=== PATIENT | female | born 1930 | race Caucasian/White ===

== ENCOUNTER 2017-11-25 22:10 | Observation (INO) ==
[2017-11-25] MEDS ORDERED: Ondansetron ODT 4 MG TAB.RAPDIS SL ONE (22:48)
[2017-11-25] MEDS ORDERED: 0.9 % Sodium Chloride 1,000 ML IVC ONE (23:05)
[2017-11-25] MEDS ORDERED: Metoclopramide 10 MG/2 ML VIAL IVP ONE (23:06)
--- NOTE | 2017-11-25 23:07 | Emergency Department Note ---
Disposition Clinical Impression: Gastroenteritis, Dehydration, CARMEN (acute kidney injury) Disposition: Admitted As Inpatient Condition: Fair Referrals: Brenda Willis MD [Primary Care Provider] - Forms: ED Satisfaction Letter Time of Disposition: 02:00 (Claudio) Nausea/Vomiting/Diarrhea HPI - General Chief complaint: ED Nausea/Vomiting/Diarrhea Stated complaint: back pain , vomiting and diarrhea Time Seen by Provider: 11/25/17 22:47 Source: patient, family Limitations: physical limitation, age Nursing Notes Reviewed: Yes Vital Signs Reviewed: Yes - History of Present Illness Pt Subjective Complaint: nausea, vomiting, diarrhea Onset (ago): day(s) (2) Description of emesis: watery Description of Diarrhea: water Associated Abdominal Pain: Yes If pain, Location of pain: LLQ, RLQ Radiation: other (back) Severity: moderate Quality: cramping Consistency: constant Improves with: nothing Worsens with: bowel movement, vomiting Associated symptoms: Reports: loss of appetite, weakness. Denies: myalgias, chest pain, cough, diaphoresis, fever/chills, headaches, malaise, rash, dysuria , shortness of breath, syncope - Related Data Home Medications Medication Instructions Recorded Confirmed Lisinopril [Zestril] 5 mg PO DAILY 04/07/15 11/25/17 Pantoprazole Sodium 40 mg PO DAILY 04/07/15 11/25/17 Atorvastatin Calcium [Lipitor] 20 mg PO QAM 08/04/16 11/25/17 Calcium Carbonate/Vitamin D3 1 each PO QAM 08/04/16 11/25/17 [Calcium 1,000 + D3 Caplet] Cranberry 400 mg PO QAM 08/04/16 11/25/17 Estrogens, Conjugated [Premarin 1 appl VG 3XW 08/04/16 11/25/17 Cream] L. Acidophilus/Bifid. Animalis 1 each PO QAM 08/04/16 11/25/17 [One-A-Day Trubiotics Capsule] Metoprolol [Lopressor] 25 mg PO QAM 08/04/16 08/04/16 Previous Rx's Medication Instructions Recorded Acetaminophen [Tylenol] 650 mg PO Q6HR PRN #0 tablet 05/16/16 Aspirin 81 mg PO DAILY tab.chew 05/16/16 Docusate [Colace] 100 mg PO BID PRN #0 capsule 05/16/16 Allergies Allergy/AdvReac Type Severity Reaction Status Date / Time codeine Allergy Swelling Verified 11/25/17 22:11 of Lip/Tongue/Throat fish derived Allergy Swelling Verified 11/25/17 22:11 of Lip/Tongue/Throat tramadol AdvReac Confusion Verified 11/25/17 22:11 All systems ED: reviewed and negative except as stated. Review of Systems: As Per HPI Past Medical History - Past Medical History Medical history: Reports: arthritis, coronary artery disease, GERD, hyperlipidemia, hypertension, osteoporosis, valvular heart disease, other Surgical history: Reports: knee replacement Psychiatric history: Reports: depression [employer] history: Reports: no [employer] history - Social History Smoking Status: Never smoker Smokeless Tobacco Status: No Alcohol use: Reports: none Drug use: Reports: none Physical Exam - General Limitations: physical limitation, age General appearance: alert - Head Head exam: atraumatic - Eye Eye exam: Present: normal appearance, PERRL, EOMI. Absent: scleral icterus, conjunctival injection - ENT ENT exam: normal exam, normal oropharynx, mucous membranes moist - Neck Neck exam: Present: normal inspection, full ROM, trachea midline - Respiratory Respiratory exam: Present: normal lung sounds bilaterally - Cardiovascular Cardiovascular exam: Present: regular rate, normal rhythm, normal heart sounds - Abdominal Exam Abdominal exam: Present: soft, tenderness, normal bowel sounds. Absent: distention, guarding, rebound, rigidity, mass, bruit, pulsatile mass Abdominal tenderness: Present: RLQ, LLQ, mild - Extremities Exam Extremities exam: Present: normal inspection, full ROM. Absent: tenderness, pedal edema - Back Exam Back exam: Present: tenderness, CVA tenderness (R), CVA tenderness (L). Absent : muscle spasm, paraspinal tenderness, vertebral tenderness - Neurological Exam Neurological exam: Present: alert, oriented X3, CN II-XII intact - Psychiatric Psychiatric exam: Present: normal affect, normal mood - Skin Skin exam: Present: warm, dry, intact, normal color Course Vital Signs Temperature 98.2 F 11/25/17 22:16 Pulse Rate 65 11/25/17 22:16 Respiratory Rate 16 11/25/17 22:16 Blood Pressure 127/68 11/25/17 22:16 O2 Sat by Pulse Oximetry 95 11/25/17 22:16 Temperature 98.2 F 11/25/17 22:16 Pulse Rate 63 11/26/17 01:04 Respiratory Rate 16 11/26/17 01:04 Blood Pressure 112/67 11/26/17 01:04 O2 Sat by Pulse Oximetry 99 11/26/17 01:04 Oxygen Delivery Oxygen Delivery Room Air Nausea/Vomiting/Diarrhea - Differential Diagnosis Likely: traveler's diarrhea, food poisoning, gastroenteritis, clostridium difficile infection, drug-induced nausea and vomitting, dehydration - Medical Records Medical records reviewed: Yes I reviewed the patient's medical records. - Lab Data Lab results reviewed: Yes I reviewed the patient's lab results. Result diagrams: 11/26/17 00:00 11/26/17 00:00 Lab Results 11/26/17 11/26/17 11/26/17 Range/Units 00:00 00:00 00:51 WBC 10.6 (4.3-11.1) K/mcL RBC 3.90 (3.82-4.97) M/mcL Hgb 12.1 (11.5-15.4) g/dL Hct 37.0 (35.3-44.9) % MCV 94.9 (83.0-100.0) fL MCH 31.0 (28.0-33.3) pg MCHC 32.7 (31.6-35.5) g/dL RDW 13.1 (11.5-14.5) % Plt Count 175 (140-400) K/mcL MPV 10.6 (9.4-12.4) fL Immature Gran % 0.3 (0-4) % Seg Neutrophils % 79.4 % Lymphocytes % 12.4 % Monocytes % 6.3 % Eosinophils % 1.0 % Basophils % 0.6 % Neutrophils # 8.4 (1.6-8.9) K/mcL Lymphocytes # 1.3 (0.6-4.6) K/mcL Monocytes # 0.7 (0.0-1.3) K/mcL Eosinophils # 0.1 (0.0-0.6) K/mcL Basophils # 0.1 (0.0-0.2) K/mcL Sodium 138 (136-145) mEq/L Potassium 4.5 (3.5-5.1) mEq/L Chloride 109 H (98-107) mEq/L Carbon Dioxide 19 L (23-29) mEq/L BUN 32 H (8-23) mg/dL Creatinine 1.63 H (0.60-1.20) mg/dL Est GFR ( Amer) 36 L (> 60) Est GFR (Non-Af Amer) 30 L (> 60) BUN/Creatinine Ratio 20 (6-26) Glucose 131 H (70-105) mg/dL Calculated Osmolality 295 (280-300) Calcium 8.5 L (8.6-10.3) mg/dL Total Bilirubin 0.6 (0.3-1.0) mg/dL AST 17 (13-39) Units/L ALT 11 (7-52) Units/L Alkaline Phosphatase 71 (34-104) Units/L Serum Total Protein 6.1 L (6.4-8.9) g/dL Albumin 3.9 (3.5-5.7) g/dL Globulin 2.2 L (2.4-3.5) g/dL Albumin/Globulin Ratio 1.8 (1.1-2.2) Lipase 45 (11-82) Units/L Urine Color Yellow (Yellow) Urine Clarity Slightly Cloudy A (Clear) Urine pH 5.5 (5.0-8.0) pH Units Ur Specific [place] 1.025 (1.010-1.025) Urine Protein Negative (Neg-Trace) mg/dL Urine Glucose (UA) Normal (Normal) mg/dL Urine Ketones Negative (Negative) mg/dL Urine Blood Negative (Negative) Urine Nitrite Negative (Negative) Urine Bilirubin Negative (Negative) Urine Urobilinogen Normal (Normal) mg/dL Ur Leukocyte Esterase Small H (Negative) Urine Microscopic RBC 0-3 (0-3) per hpf Urine Microscopic WBC 30-50 H (0-3) per hpf Ur Squamous Epith Cells Many H (None-Few) per lpf Urine Bacteria Moderate H (None-Few) per hpf Urine Mucus Moderate H (Few) Ur Culture Indicated? NO. A (NO)
[2017-11-25] MEDS ORDERED: Acetaminophen 325 MG TABLET PO ONE (23:58)
[2017-11-26 00:05] LABS: Basophils # 0.1 K/mcL (0.0-0.2); Basophils % 0.6 %; Eosinophils # 0.1 K/mcL (0.0-0.6); Hemoglobin 12.1 g/dL (11.5-15.4); Immature Granulocytes % 0.3 % (0-4); Lymphocytes # 1.3 K/mcL (0.6-4.6); Lymphocytes % 12.4 %; Mean Corpuscular HGB Conc 32.7 g/dL (31.6-35.5); Mean Corpuscular Volume 94.9 fL (83.0-100.0); Mean Platelet Volume 10.6 fL (9.4-12.4); Monocytes # 0.7 K/mcL (0.0-1.3); Monocytes % 6.3 %; Neutrophils # 8.4 K/mcL (1.6-8.9); Platelet Count 175 K/mcL (140-400); Red Cell Distribution Width 13.1 % (11.5-14.5); Segmented Neutrophils % 79.4 %
[2017-11-26 01:19] LABS: Calcium 8.5 mg/dL (8.6-10.3); Potassium 4.5 mEq/L (3.5-5.1)
[2017-11-26 01:29] LABS: Albumin 3.9 g/dL (3.5-5.7); Albumin/Globulin Ratio 1.8 (1.1-2.2); Bilirubin,Total 0.6 mg/dL (0.3-1.0); Globulin 2.2 g/dL (2.4-3.5); Total Protein 6.1 g/dL (6.4-8.9)
[2017-11-26 01:35] LABS: Bilirubin,Urine Negative (Negative); Blood,Urine Negative (Negative); Clarity,Urine Slightly Cloudy (Clear); Color,Urine Yellow (Yellow); Glucose,Urine (UA) Normal (Normal); Ketones,Urine Negative (Negative); Leukocyte Esterase,Urine Small (Negative); Nitrite,Urine Negative (Negative); PH,Urine 5.5 pH Units (5.0-8.0); Protein,Urine Negative (Neg-Trace); Specific Gravity,Urine 1.025 (1.010-1.025); Urobilinogen,Urine Normal (Normal)
[2017-11-26 01:50] LABS: Bacteria,Urine Moderate per hpf (None-Few); Squamous Epithelial Cell,Urine Many per lpf (None-Few)
[2017-11-26 01:52] LABS: RBC,Urine 0-3 per hpf (0-3); WBC,Urine 30-50 per hpf (0-3)
[2017-11-26 01:53] LABS: Mucus,Urine Moderate (Few)
[2017-11-26] MEDS ORDERED: Metoclopramide 10 MG/2 ML VIAL IVP STA (02:56)
[2017-11-26] MEDS ORDERED: 0.9 % Sodium Chloride 1,000 ML IVC SCH (07:47)
[2017-11-26] MEDS ORDERED: Acetaminophen 325 MG TABLET PO PRN ×2 (07:47)
[2017-11-26] MEDS ORDERED: Naloxone 0.4 MG/ML INJ IVP PRN (07:47)
[2017-11-26] MEDS ORDERED: Metoclopramide 10 MG/2 ML VIAL IVP PRN (08:00)
[2017-11-26] MEDS ORDERED: Aspirin 81 MG TAB.CHEW PO SCH (09:00)
[2017-11-26] MEDS ORDERED: Estrogens, Conjugated CREAM 30 GM TUBE VG SCH (09:00)
[2017-11-26] MEDS ORDERED: Cholecalciferol (D-3) 1,000 UNIT TABLET PO SCH (10:45)
[2017-11-26 12:47] VITALS: BP 134/68
--- NOTE | 2017-11-26 15:49 | Internal Med History&Physical ---
Date of Encounter: 11/26/17 Time of Encounter: 15:15 Assessment and Plan (1) Gastroenteritis Current visit: Yes Status: Acute Clinically improved. She wishes to be discharged home. (2) HTN (hypertension) Current visit: No Status: Chronic Continue Lopressor and lisinopril. Qualifiers: Hypertension type: essential hypertension Qualified Code(s): I10 - Essential (primary) hypertension (3) CARMEN (acute kidney injury) Current visit: No Status: Acute Creatinine has risen from 1.32 on 10/10/2017 to 1.63 in ER. Suspect due to decreased oral intake. Her PCP and /or administrative assistant receptionist can monitor this. (4) History of aortic valve replacement with bioprosthetic valve Current visit: No Status: Chronic Internal Medicine - H&P: HPI Chief complaint: Vomiting Admitted From: Emergency Dept Plans for Post Hospital Care: Home History of present illness: Ms. Valle is a 87 year old female who came to emergency room stating she had onset of vomiting 11/24/2017 approximately 0500. She had several episodes along with diarrhea. After approximately 1 hour symptoms resolved and remained resolved until the following evening when they recurred. She also developed discomfort in her right low back area so decided to come to emergency room. She was evaluated and found to have acute on chronic renal insufficiency with probable dehydration and gastritis. She was admitted to [facility] floor for ongoing care needs. She states she feels improved present time. She has had no vomiting for proximately 12 hours and has no residual nausea. She has ingested liquids today without difficulty. She wishes to be discharged home. Her GI history is pertinent for GERD. She denies disorders of her liver gallbladder or exocrine pancreas. Past Med Surg Social Fam HX - Past Medical History Medical history: arthritis, coronary artery disease, GERD, hyperlipidemia, hypertension, osteoporosis, valvular heart disease, other Additional medical history: FREQUENT UTI'S Psychiatric history: depression - Past Surgical History Surgical History: knee replacement Additional surgical history: 2 broked arms. HEART VALVE REPLACED - Social History Smoking Status: Never smoker Smokeless Tobacco Status: No Alcohol use: none Drug use: none Internal Medicine - H&P: Meds Lisinopril [Zestril] 5 mg PO DAILY 04/07/15 [History] Pantoprazole Sodium 40 mg PO DAILY 04/07/15 [History] Acetaminophen [Tylenol] 650 mg PO Q6HR PRN #0 tablet 05/16/16 [Rx] Aspirin 81 mg PO DAILY tab.chew 05/16/16 [Rx] Docusate [Colace] 100 mg PO BID PRN #0 capsule 05/16/16 [Rx] Atorvastatin Calcium [Lipitor] 20 mg PO QAM 08/04/16 [History] Calcium Carbonate/Vitamin D3 [Calcium 1,000 + D3 Caplet] 1 each PO QAM 08/04/16 [History] Cranberry 400 mg PO QAM 08/04/16 [History] Estrogens, Conjugated [Premarin Cream] 1 appl VG 3XW 08/04/16 [History] L. Acidophilus/Bifid. Animalis [One-A-Day Trubiotics Capsule] 1 each PO QAM [History] Metoprolol [Lopressor] 25 mg PO QAM 08/04/16 [History] 3 Allergy/AdvReac Type Severity Reaction Status Date / Time codeine Allergy Swelling Verified 11/25/17 22:11 of Lip/Tongue/Throat fish derived Allergy Swelling Verified 11/25/17 22:11 of Lip/Tongue/Throat tramadol AdvReac Confusion Verified 11/25/17 22:11 All Systems PM: A 10-system review of systems was performed and is negative for pertinent findings except as documented above in the HPI. Review of systems: Gen.: She states her weight has been stable the past few months Cardiovascular: She has history of hypertension but denies DE heart failure angina DVT or pulmonary embolus. She had aortic valve replacement 2004. Respiratory: She is a lifelong nonsmoker and denies chronic lung disease GI: As per history of present illness : She has chronic kidney disease stage III and follows with a [place] administrative assistant receptionist. She denies other kidney or bladder disorders Neurologic: She denies large distribution strokes or seizures. Endocrine: She has hyperlipidemia. She has been told she is prediabetic. She denies thyroid disease. Hematology/oncology: She denies blood disorders cancers or anemia Psychiatric: She denies anxiety depression or other mental health issues [place] skeletal: She has DJD. She has had left knee arthroscopic surgery and right hand surgery. She denies gout or other bone joint or muscle disorders. - Constitutional Vitals: Temp Pulse Resp BP Pulse Ox 98.6 F 76 16 134/68 96 11/26/17 10:27 11/26/17 10:27 11/26/17 10:27 11/26/17 10:27 11/26/17 10:27 Exam: Gen.: She is a well developed well-nourished female resting comfortably in bed who appears in no acute distress at present time HEENT: Head is atraumatic and normocephalic. Eyes: EOMI. There is no scleral icterus. Mouth: Mucosa is moist. Neck: Supple and nontender. There is no thyromegaly or adenopathy noted. Heart: Regular without murmurs gallops or ectopics Lungs: No wheezes or crackles are heard. Abdomen: Soft and nontender. No masses or guarding are noted. Extremities: There is no cyanosis edema or clubbing noted. Dorsalis pedis and posttibial pulses are trace to 1+ palpable bilaterally. Neurologic: Mental status: She is talkative and a good historian. Cranial nerves: Smile is symmetric. Forehead wrinkles bilaterally. Tongue protrudes midline. EOMI. Motor: There is no pronator drift. Cerebellar: Finger to nose is intact bilaterally. Skin: Warm and dry Internal Med - H&P Results - Labs CBC & Chem 7: 11/26/17 00:00 11/26/17 00:00
--- NOTE | 2017-11-26 16:02 | Discharge Summary ---
Date of Encounter: 11/26/17 Time of Encounter: 15:15 - Discharge Diagnosis (1) Gastroenteritis Priority: Primary Status: Acute (2) HTN (hypertension) Priority: Secondary Status: Chronic Qualifiers: Hypertension type: essential hypertension Qualified Code(s): I10 - Essential (primary) hypertension (3) CARMEN (acute kidney injury) Priority: Secondary Status: Acute (4) History of aortic valve replacement with bioprosthetic valve Priority: Secondary Status: Chronic Hospital course: Ms. Valle is a 87 year old female who came to emergency room stating she had onset of vomiting 11/24/2017 approximately 0500. She had several episodes along with diarrhea. After approximately 1 hour symptoms resolved and remained resolved until the following evening when they recurred. She also developed discomfort in her right low back area so decided to come to emergency room. She was evaluated and found to have acute on chronic renal insufficiency with probable dehydration and gastritis. She was admitted to [facility] floor for ongoing care needs. Initial orders were written by the emergency room physician. I saw her the afternoon of November 26 and performed a history physical and discharge. When I saw her she felt clinically improved to near baseline. She had no vomiting for approximately 12 hours. She felt stable for discharge home which I felt was [place]. She will advance diet as tolerated. I reviewed lab work from emergency room showing UA indicating possible UTI. I explained to her many epithelial cells were present and told her this might be a contaminated specimen. Because of the slight left shift on admission CBC I will treat her with 3 days of Septra DS. Her PCP can monitor this further. She will be discharged home and follow with her PCP Dr. Willis within 1 week. - Time Spent with Patient Total time spent providing and/or coordinating discharge services: - Discharge Medications Prescriptions: Sulfamethoxazole/Trimeth DS [Bactrim DS] 1 each PO BID #6 tablet Home Medications: Lisinopril [Zestril] 5 mg PO DAILY 04/07/15 [History] Pantoprazole Sodium 40 mg PO DAILY 04/07/15 [History] Acetaminophen [Tylenol] 650 mg PO Q6HR PRN #0 tablet 05/16/16 [Rx] Aspirin 81 mg PO DAILY tab.chew 05/16/16 [Rx] Docusate [Colace] 100 mg PO BID PRN #0 capsule 05/16/16 [Rx] Atorvastatin Calcium [Lipitor] 20 mg PO QAM 08/04/16 [History] Calcium Carbonate/Vitamin D3 [Calcium 1,000 + D3 Caplet] 1 each PO QAM 08/04/16 [History] Cranberry 400 mg PO QAM 08/04/16 [History] Estrogens, Conjugated [Premarin Cream] 1 appl VG 3XW 08/04/16 [History] L. Acidophilus/Bifid. Animalis [One-A-Day Trubiotics Capsule] 1 each PO QAM [History] Metoprolol [Lopressor] 25 mg PO QAM 08/04/16 [History] Sulfamethoxazole/Trimeth DS [Bactrim DS] 1 each PO BID #6 tablet 11/26/17 [Rx] Allergies/Adverse Reactions: 3 Allergy/AdvReac Type Severity Reaction Status Date / Time codeine Allergy Swelling Verified 11/25/17 22:11 of Lip/Tongue/Throat fish derived Allergy Swelling Verified 11/25/17 22:11 of Lip/Tongue/Throat tramadol AdvReac Confusion Verified 11/25/17 22:11 Date of admission: 11/26/17 02:58 Primary care physician: Brenda Willis, - Constitutional Vitals: Temp Pulse Resp BP Pulse Ox 98.6 F 76 16 134/68 96 11/26/17 10:27 11/26/17 10:27 11/26/17 10:27 11/26/17 10:27 11/26/17 10:27 - Patient Status Disposition: Home, Self-Care Condition: Fair Overall status at discharge: patient is progressing back to baseline - Discharge Instructions Follow Up With: Brenda Willis MD [Primary Care Provider] - 1 week - Diet and Activity Activity: resume usual activities as tolerated
== END 2017-11-26 17:10 | disposition home or self-care (01) ==
LOC: INPPIK 22:10 → EMEROOPIK 22:10 → INPPIK 11-26 03:20
PROVIDERS: ADMIT Internal Medicine; ATTEND Internal Medicine